=== PATIENT | female | born 1970 | race Caucasian/White ===

== ENCOUNTER 2019-07-06 16:41 | Emergency (ER) | payer OTHER ==
[~2019-07-06] VITALS: Ht 177.8 cm; Wt 81.7 kg
[~2019-07-06 16:41] MED LIST: FLEXERIL PO; IBUPROFEN 800800 M1 PO
[2019-07-06 16:43] VITALS: BP 113/83
[2019-07-06] MEDS ORDERED: METFORMIN HCL500 MG PO (16:47)
[2019-07-06] MEDS ORDERED: NORFLEX100 MG PO (17:31)
[2019-07-06] MEDS ORDERED: IBUPROFEN 800800 M1 PO (17:31)
== END 2019-07-06 17:38 | disposition home or self-care (01) ==
LOC: ER 16:41
DX: S29.012A Strain of muscle and tendon of back wall of thorax, initial encounter (principal); G44.209 Tension-type headache, unspecified, not intractable; Z85.3 Personal history of malignant neoplasm of breast; V89.2XXA Person injured in unspecified motor-vehicle accident, traffic, initial encounter; Y92.89 Other specified places as the place of occurrence of the external cause; Y93.89 Activity, other specified; Y99.8 Other external cause status